=== PATIENT | female | born 1975 | race Caucasian/White ===

== ENCOUNTER 2018-08-14 12:21 | Emergency (ER) | payer BC, SELFPAY ==
[2018-08-14 12:24] VITALS: BP 128/92; PULSE 79; RESP 14; TEMP 36.7; O2SAT 96
--- NOTE | 2018-08-14 12:59 | W.ED.GENAD ---
Discharge Plan Disposition Patient Disposition: HOME Condition: Stable Discharge Details Chief Complaint: Nk/Back Pain Clinical Impression: Spasm of back muscles, Sciatica Primary Care Provider: Patrick Hennessy ED Provider: Cecelia Mayo Home Meds and New Rx's Prescriptions: New methocarbamol 750 mg tablet 750 mg PO TID PRN (Reason: muscle spasm) Qty: 14 RF: 0 prednisone 20 mg tablet See Rx Instructions .ROUTE .COMPLEX Qty: 12 RF: 0 Continued albuterol sulfate [Ventolin HFA] 90 mcg/actuation Hfa Aerosol Inhaler 2 puff Inhalation PRN PRNRF: 0 Symbicort 160-4.5 mcg/actuation Hfa Aerosol Inhaler 1 puff Inhalation BID RF: 0 Discharge Instructions Instructions: Sciatica (ED), Muscle Spasm (ED) Additional Instructions: Alternate Tylenol and Motrin as needed directed for pain. Take the muscle relaxers as needed and directed to help with muscle spasm pain. If you have no relief of symptoms in the next 3 days, you may start the steroids. Alternate ice and heat to the affected area several times daily for 20 minutes at a time. Follow-up with your primary care doctor in 1 week for reevaluation. Return immediately to the emergency department with any worsening or concerning symptoms. Discharge Data Discharge Date/Time-TO BE ENTERED AT DEPARTURE: 08/14/18 13:45 Discharge Physician: Cecelia Mayo Medical Decision Making 42-year-old female with a history of asthma and GERD who presents with right-sided mid to lower back pain for the past few weeks now worse over the past few days with radiation to the right buttock hip and thigh. Pain worse with movement. No urinary or cauda equina symptoms. Patient was able to easily ambulate back to the room. Vitals within normal limits. She has tenderness to palpation of her right lower thoracic and lumbar paraspinal regions. No midline spinal tenderness. Neurovascularly intact. No focal deficits. Discussed with patient at length that this appears consistent with likely muscle strain/spasm/sciatica exacerbated with prolonged positions of sitting with recent travel. Does not appear consistent with a urinary etiology, disc herniation, or shingles at this time. Do not see an indication for imaging at this time and pt is agreeable. Patient drove herself to the emergency department, cannot give sedating medications at this time and she does not have a ride. Urine test negative. Dose of IM Toradol given here. Patient instructed to alternate Tylenol and Motrin and will send home with a prescription for methocarbamol. We will also give a prescription for prednisone to start if her symptoms do not improve or worsen. She is instructed to follow the primary care doctor for reevaluation and return here anytime if worse with fever, urinary symptoms or any other concerns. HPI General Mode of arrival: ambulatory. Date/Time Provider Initiated Documentation: 08/14/18 12:22. Limitations to Documentation: no limitations. Information obtained by: patient. HPI Narrative: Patient is a 42-year-old female with a history of asthma and GERD who presents the ED with complaint of right-sided mid to lower back pain for the past 2 weeks, worse over the past few days and now with extension into her right buttock and right hip and thigh after traveling on planes recently. Patient states the pain is worse with sitting on right side, laying down, and bending over. She states the pain is better when she sits more on her left side onto her left buttock and with relief. Her last dose of Aleve was yesterday. She states her pain is aching and dull and currently 6/10. She drove herself to the emergency department. She denies any fever, vomiting, diarrhea, dysuria, hematuria, urinary frequency, your bowel or bladder incontinence, leg weakness or numbness, abdominal pain or saddle anesthesia. She denies any known injury. Related Data Home Medications Medication Instructions Recorded Confirmed Symbicort 1 puff INHALATION BID 08/14/18 08/14/18 albuterol sulfate [Ventolin HFA] 2 puff INHALATION PRN PRN 08/14/18 08/14/18 methocarbamol 750 mg PO TID PRN #14 tab 08/14/18 prednisone See Rx Instructions .ROUTE 08/14/18 .COMPLEX #12 tab Previous Rx's Medication Instructions Recorded methocarbamol 750 mg PO TID PRN #14 tab 08/14/18 prednisone See Rx Instructions .ROUTE 08/14/18 .COMPLEX #12 tab Allergies Allergy/AdvReac Type Severity Reaction Status Date / Time pseudoephedrine HCl AdvReac Intermediate heart races Unverified 08/14/18 12:33 [From Sudafed] acetaminophen [From Vicodin] AdvReac Mild Nausea Unverified 08/14/18 12:33 codeine AdvReac Mild Nausea Unverified 08/14/18 12:33 hydrocodone bitartrate AdvReac Mild Nausea Unverified 08/14/18 12:33 [From Vicodin] General Stated Complaint: Nk/Back Pain CATHY: 3 Review of Systems Review of Systems All systems reviewed & are unremarkable except as noted in HPI and below Constitutional Reports as per HPI, Denies chills and Denies fever(s) Eyes Denies blurry vision ENT Denies dizziness, Denies sore throat and Denies throat swelling Cardiovascular Denies chest pain and Denies dyspnea Respiratory Denies cough and Denies dyspnea Gastrointestinal Denies abdominal pain, Denies diarrhea and Denies vomiting Genitourinary Denies hematuria and Denies dysuria Musculoskeletal Reports back pain and Denies numbness Integumentary/Breasts Denies lesions and Denies rash Neurologic Denies dizziness, Denies focal weakness and Denies numbness Allergic/Immunologic Denies throat swelling [facility] Medical History Asthma (Chronic) GERD (gastroesophageal reflux disease) (Chronic) Surgical History S/P wrist surgery (Acute) Social History Smoking/Tobacco Use Status: Former Tobacco Use Alcohol Intake: current Alcohol Intake frequency: a few times a month Drug use: Never Substance use type: does not use Details: quit smoking 5 years ago Do you feel safe at home: Yes Do you feel safe in your relationship?: Yes Exam Const General: cooperative, healthy appearing and no acute distress [facility] Head: normal to inspection Face and sinus: normal facial exam Eyes General: appearance normal, both eyes and all related structures EOM: EOM intact bilaterally Neck Neck: normal visual inspection and No submandibular swelling Lymphatic: no lymphadenopathy noted Chest Chest: normal inspection of the chest and no tenderness Resp Effort & Inspection: normal respiratory effort and able to speak in complete sentences Auscultation: clear to auscultation bilaterally Cardio Rate: regular rate Rhythm: regular rhythm GI Inspection: normal to inspection Palpation: soft, not firm, not rigid and nontender Auscultation: normal bowel sounds Back/Spine/Pelvis Thoracic/Lumbar Spine: straight leg raise negative bilaterally, No thoracic spinal tenderness, No lumbar spinal tenderness and other (Tenderness to palpation of right and and lower paraspinal region) Other: No erythema, edema, ecchymosis or rash noted to back. Skin General skin exam: no rashes or lesions noted Neuro General: alert, awake and oriented x3 Cognition: normal cognition Speech: speech normal Motor: muscle tone normal throughout and other (Muscle strength 5/5 bilateral lower extremities.) Sensory Exam: no sensory deficits noted DTR's: Rt Patellar: 2+, Lt Patellar: 2+, Rt Ankle: 2+ and Lt Ankle: 2+ Plantar Reflexes: Equivocal: bilateral Extrem General: normal to inspection, full ROM and no edema Psych Appearance: grossly normal Mental Status: mental status grossly normal Speech and Movement: speech and movement normal Affect: normal affect Course Vital Signs Temperature 98.1 F 08/14/18 12:24 Pulse 79 08/14/18 12:24 Respiratory Rate 14 08/14/18 12:24 Blood Pressure 128/92 H 08/14/18 12:24 Pulse Oximetry 96 08/14/18 12:24 Temperature 98.1 F 08/14/18 12:24 Temperature Source Skin 08/14/18 12:24 Pulse 79 08/14/18 12:24 Respiratory Rate 14 08/14/18 12:24 Respiratory Effort 08/14/18 12:30 Blood Pressure 128/92 H 08/14/18 12:24 Pulse Oximetry 96 08/14/18 12:24 Oxygen Delivery Method Room Air 08/14/18 12:24 Oxygen Flow Rate 0 08/14/18 12:24 Pain Level 7 08/14/18 12:24
[2018-08-14] MEDS: Ketorolac 60 MG/2 ML VIAL IM (13:35)
== END 2018-08-14 13:45 | disposition home or self-care (01) ==
PROVIDERS: Emergency Provider Physician Assistant; PCP Internal Medicine
DX: M54.41 Lumbago with sciatica, right side (principal); M62.830 Muscle spasm of back
CPT/HCPCS: 81025; 96374; 99284; J1885

== ENCOUNTER 2018-10-18 01:29 | Outpatient (CLI) | payer BC, SELFPAY ==
--- NOTE | 2018-10-18 09:30 | DI.MRI_ITS ---
SYMPTOM/DIAGNOSIS: CHRONIC NECK PAIN, M54.2, WEAKNESS LT ARM CERVICAL SPINE MRI: Routine noncontrast examination was performed. There is normal signal in the spinal cord. No evidence of tonsillar ectopia is present. C 7-T 1 shows no focal disc herniation, central spinal canal or neural foraminal stenosis. At C 6-7, there is a small central disc herniation. It does cause effacement of the anterior subarachnoid space. There is normal signal in the spinal cord at this level. No neural foraminal stenosis is present. At C 5-6, there is prominence of the osteophyte disc complex effacing the anterior subarachnoid space and flattening the spinal cord. There is narrowing of the spinal cord down to 0.9 cm. There are degenerative changes of the uncovertebral joints causing mild bilateral neural foraminal narrowing. At C 4-5, C 3-4 and C 2-3, there is no focal disc herniation, central spinal canal or neural foraminal stenosis present. Marrow signal is within normal limits apart from mild degenerative endplate signal changes. The soft tissues are unremarkable. IMPRESSION: Degenerative changes at C 5-6 causing central spinal canal and neural foraminal stenosis. Small central disc herniation at C 6-7.
== END 2018-10-18 01:49 ==
PROVIDERS: PCP Internal Medicine; Visit Provider Family Medicine
DX: M54.2 Cervicalgia (principal); M62.81 Muscle weakness (generalized); M50.223 Other cervical disc displacement at C6-C7 level; M50.322 Other cervical disc degeneration at C5-C6 level
CPT/HCPCS: 72141